=== PATIENT | female | born 1985 | race Caucasian/White ===

== ENCOUNTER 2016-11-20 19:44 | Emergency (ER) | payer SELFPAY ==
[2016-11-20 19:50] VITALS: BMI 23.6
--- NOTE | 2016-11-20 20:10 | ED PDOC ---
"Arrival/HPI - General Chief Complaint: Abdominal Pain Time Seen by Provider: 11/20/16 19:55 Historian: Patient - History of Present Illness Narrative History of Present Illness (Text): 11/20/16 20:09 31 y/o female, no significant pmh, nkda, c/o pelvic pain on and off x 2 months with no fall or trauma. Pt. stated that her pain usually happened at the begining of the period, pelvic pain radiating to the back, no pain medication taken at home, no headache or night sweat, no rash, no dizziness, no vaginal bleeding or discharge, no urinary symptoms, no numbness or tingling, no other medical or psychological complaints. Past Medical History - Provider Review Nursing Documentation Reviewed: Yes - Infectious Disease Hx of Infectious Diseases: None - Psychiatric Hx Substance Use: No - Surgical History Other/Comment: 1 vaginal - Anesthesia Hx Anesthesia: No Family/Social History - Physician Review Nursing Documentation Reviewed: Yes Family/Social History: Unknown Family HX Smoking Status: Never Smoked Hx Alcohol Use: No Hx Substance Use: No Allergies/Home Meds Allergies/Adverse Reactions: Allergies No Known Allergies Allergy (Verified 11/20/16 19:49) Review of Systems - Review of Systems Constitutional: absent: Fatigue, Fevers Eyes: absent: Vision Changes ENT: absent: Hearing Changes Respiratory: absent: SOB, Cough, Sputum Cardiovascular: absent: Chest Pain Gastrointestinal: Other (pelvic pain). absent: Abdominal Pain, Nausea, Vomiting Skin: absent: Rash, Pruritis, Skin Lesions, Laceration, Abscess, Ulcer, Cellulitis Neurological: absent: Headache, Dizziness, Focal Weakness Psychiatric: Normal Physical Exam Vital Signs Reviewed: Yes Vital Signs Temp Pulse Resp BP Pulse Ox 11/20/16 19:52 98.3 F 83 18 108/70 99 Temperature: Afebrile Blood Pressure: Normal Pulse: Regular Respiratory Rate: Normal Appearance: Positive for: Well-Appearing, Non-Toxic, Comfortable Pain Distress: Mild Mental Status: Positive for: Alert and Oriented X 3 - Systems Exam Head: Present: Atraumatic, Normocephalic Pupils: Present: PERRL Extroacular Muscles: Present: EOMI Conjunctiva: Present: Normal Mouth: Present: Moist Mucous Membranes Neck: Present: Normal Range of Motion Respiratory/Chest: Present: Clear to Auscultation, Good Air Exchange. No: Respiratory Distress, Accessory Muscle Use Cardiovascular: Present: Regular Rate and Rhythm, Normal S1, S2. No: Murmurs Abdomen: Present: Normal Bowel Sounds. No: Tenderness, Distention, Peritoneal Signs, Rebound, Guarding Genitourinary/Pelvic Exam: Present: Other (Pt. deferred the pelvic examination. ) Back: Present: Normal Inspection Upper Extremity: Present: Normal Inspection. No: Cyanosis, Edema Lower Extremity: Present: Normal Inspection. No: Edema Neurological: Present: GCS=15, Speech Normal, Motor Func Grossly Intact, Gait Normal, Memory Normal Skin: Present: Warm, Dry, Normal Color. No: Rashes Psychiatric: Present: Alert, Oriented x 3, Normal Insight, Normal Concentration Medical Decision Making ED Course and Treatment: 11/20/16 20:07 -UA -Transvagina sonogram -Observe and reassess 11/20/16 20:20 -Urine hcg negative -Toradol IM ordered. 11/20/16 21:24 -UA show no UTI -Sonogram show no acute findings. -Pain resolved, will discharge home. -Discharge home with motrin, stay hydrated, follow up with your own pmd and obgyn within 2 days, return to the ER for any new or worsening signs or symptoms. - Lab Interpretations Lab Results: Lab Results 11/20/16 20:08: Urine Color Yellow, Urine Appearance Clear, Urine pH 6.5, Ur Specific [place] 1.020, Urine Protein Negative, Urine Glucose (UA) Negative, Urine Ketones Negative, Urine Blood Negative, Urine Nitrate Negative, Urine Bilirubin Negative, Urine Urobilinogen 0.2, Ur Leukocyte Esterase Negative I have reviewed the lab results: Yes Interpretation: No clinic. lab abnormalty - RAD Interpretation Radiology Orders: 11/20/16 20:06 TRANSVAGINAL [US] Stat EXAM: US Pelvis Complete, Transabdominal CLINICAL HISTORY: 31 years old, female; Pain; Pelvic pain; Additional info: Bilateral ovaries pain x 2 months TECHNIQUE: Real-time transabdominal pelvic ultrasound (complete) with image documentation. COMPARISON: There are no prior studies for comparison. FINDINGS: Uterus: Uterus is anteflexed and measures approximately 6.3 x 4.3 x 4.8 cm. The endometrium measures approximately 5.5 mm in width. Bladder: Bladder is incompletely distended. Adnexa: There are no adnexal masses. Neither ovary could be identified. There is no free fluid IMPRESSION: Limited by incomplete bladder distention and body habitus, no adnexal masses EXAM: US Pelvis, Transvaginal CLINICAL HISTORY: 31 years old, female; Pain; Pelvic pain; Additional info: Bilateral ovaries pain x 2 months TECHNIQUE: Real-time transvaginal pelvic ultrasound (complete) with image documentation. Transvaginal imaging was used for better evaluation of the endometrium and adnexa. EXAM DATE/TIME: 11/20/2016 8:06 PM MARGOT CHRISTIANSON | Final Radiology Report CONFIDENTIALITY STATEMENT This report is intended only for use by the referring physician, and only in accordance with law. If you received this in error, call [phone]. Page 2 of 2 COMPARISON: There are no prior studies for comparison. FINDINGS: Uterus: Uterus measures approximately 7.9 x 3.4 x 4.8 cm. Endometrium measures approximate 7.8 mm in width. Left ovary: Left ovary measures approximately 2.38 x 1.74 x 1.38 cm.There are multiple small follicles. There is intraovarian blood flow. Right ovary: Right ovary measures approximately 3 x 1.7 x 1.7 cm.There are multiple small follicles. There is intraovarian blood flow. Cul-de-sac:There is no free fluid. IMPRESSION: Normal transvaginal pelvic ultrasound Thank you for allowing us to participate in the care of your patient. Dictated and Authenticated by: Lupe Moy MD 11/20/2016 9:20 PM Eastern Time ([place] & [place]) Unit Aide: Radiologist - Medication Orders Current Medication Orders: Discontinued Medications Ketorolac Tromethamine (Toradol) 60 mg IM STAT STA Stop: 11/20/16 20:21 Last Admin: 11/20/16 21:09 Dose: 60 mg - PA / PARTY DIRECTOR / Resident Statement / has reviewed & agrees with the documentation as recorded. Disposition/Present on Arrival - Present on Arrival Any Indicators Present on Arrival: No History of DVT/PE: No History of Uncontrolled Diabetes: No Urinary Catheter: No History of Decub. Ulcer: No History Surgical Site Infection Following: None - Disposition Have Diagnosis and Disposition been Completed?: Yes Diagnosis: Pelvic pain Disposition: HOME/ ROUTINE Disposition Time: 21:28 Patient Plan: Discharge Condition: IMPROVED Additional Instructions: Discharge home with motrin, stay hydrated, follow up with your own pmd and obgyn within 2 days, return to the ER for any new or worsening signs or symptoms. Prescriptions: Ibuprofen [Motrin] 600 mg PO QID PRN #30 tab PRN Reason: Other Referrals: PCP,NO [Primary Care Provider] - Follow up with primary Petra Forbes MD [Staff Provider] - Follow up with primary [facility] [place] [Outside] - Follow up with primary Forms: WORK NOTE"
[2016-11-20 20:16] LABS: PH,URINE 6.5 (4.7-8.0); URINE BILIRUBIN NEGATIVE (NEGATIVE); URINE BLOOD NEGATIVE (NEGATIVE); URINE GLUCOSE (UA) NEGATIVE (NEGATIVE); URINE KETONE NEGATIVE (NEGATIVE); URINE LEUKOCYTE ESTERASE NEGATIVE Leu/uL (NEGATIVE); URINE PROTEIN NEGATIVE mg/dL (<30 mg/dL); URINE UROBILINOGEN 0.2 E.U./dL (<1 E.U./dL)
[2016-11-20 20:20] LABS: URINE APPEARANCE CLEAR (CLEAR); URINE COLOR YELLOW (YELLOW)
--- NOTE | 2016-11-20 21:20 | US ---
EXAM: US Pelvis Complete, Transabdominal CLINICAL HISTORY: 31 years old, female; Pain; Pelvic pain; Additional info: Bilateral ovaries pain x 2 months TECHNIQUE: Real-time transabdominal pelvic ultrasound (complete) with image documentation. COMPARISON: There are no prior studies for comparison. FINDINGS: Uterus: Uterus is anteflexed and measures approximately 6.3 x 4.3 x 4.8 cm. The endometrium measures approximately 5.5 mm in width. Bladder: Bladder is incompletely distended. Adnexa: There are no adnexal masses. Neither ovary could be identified. There is no free fluid IMPRESSION: Limited by incomplete bladder distention and body habitus, no adnexal masses EXAM: US Pelvis, Transvaginal CLINICAL HISTORY: 31 years old, female; Pain; Pelvic pain; Additional info: Bilateral ovaries pain x 2 months TECHNIQUE: Real-time transvaginal pelvic ultrasound (complete) with image documentation. Transvaginal imaging was used for better evaluation of the endometrium and adnexa. EXAM DATE/TIME: 11/20/2016 8:06 PM COMPARISON: There are no prior studies for comparison. FINDINGS: Uterus: Uterus measures approximately 7.9 x 3.4 x 4.8 cm. Endometrium measures approximate 7.8 mm in width. Left ovary: Left ovary measures approximately 2.38 x 1.74 x 1.38 cm.There are multiple small follicles. There is intraovarian blood flow. Right ovary: Right ovary measures approximately 3 x 1.7 x 1.7 cm.There are multiple small follicles. There is intraovarian blood flow. Cul-de-sac:There is no free fluid. IMPRESSION: Normal transvaginal pelvic ultrasound
[2016-11-20 21:44] VITALS: BP 105/67; PULSE 72; RESP 16; TEMP 98.6; O2SAT 98
== END 2016-11-20 21:45 | disposition home or self-care (01) ==
LOC: ED 19:44
DX: R10.2 Pelvic and perineal pain (principal)
CPT/HCPCS: 76830; 81003; 96372; 99283; J1885